=== PATIENT | female | born 1940 | race Caucasian/White ===

== ENCOUNTER 2017-09-17 23:30 | Inpatient (IN) | payer MEDICARE, OTHER ==
[2017-09-18 02:04] LABS: CKMB 1.9 ng/mL (0-6.6); Troponin I Less than 0.010 ng/mL (< 0.028)
[2017-09-18] MEDS ORDERED: Acetaminophen 650 MG Suppository PR PRN (02:06)
[2017-09-18] MEDS ORDERED: Bisacodyl 5 MG TAB PO PRN (02:06)
[2017-09-18 02:50] VITALS: BMI 27.3
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
[2017-09-18 05:10] LABS: Band 1 % (5-11); Lymphocytes 8 % (21-51); MDiff Complete? YES; Mean Corpuscular HGB CONC 33.3 g/dL (32.0-36.0); Mean Corpuscular Hemoglobin 31.8 pg (27.0-31.0); Mean Corpuscular Volume 95.5 fl (81.0-99.0); Mean Platelet Volume 6.5 fL (7.4-10.4); Neutrophil 91 % (42-75); PLT Morphology Comment Appears Increased; Platelet Count 446 thou/uL (130-400); RBC Distribution Width 12.3 % (11.5-14.5); Red Blood Cell (RBC) Count 3.78 mill/uL (4.20-5.40); White Blood Cell (WBC) Count 17.2 thou/uL (4.8-10.8)
[2017-09-18 08:05] LABS: Troponin I Less than 0.010 ng/mL (< 0.028)
[2017-09-18] MEDS: Enoxaparin Sodium 40 MG/0.4 ML SYRINGE SC SCH (09:06)
[2017-09-18] MEDS: Acetaminophen 325 MG TAB PO PRN (09:08)
[2017-09-18] MEDS ORDERED: Loperamide HCl 2 MG CAP PO SCH (10:00)
--- NOTE | 2017-09-18 18:24 | PDOC.PN ---
- Subjective Encounter Start Date: 09/18/17 Encounter Start Time: 18:20 Subjective: f/u COPD exacerbation on Solumedrol, Zithromax and Duonebs. -: Feels better overall today. Still some wheezing and dry cough. -: Influenza reportedly neg x 2. - Objective MAR Reviewed: Yes Vital Signs & Weight: Vital Signs (12 hours) Temp Pulse Resp BP Pulse Ox 09/18/17 14:11 101 H 20 92 L 09/18/17 10:45 98.0 F 100 22 H 127/57 L 95 09/18/17 07:40 98.0 F 98 20 123/74 96 09/18/17 07:27 96 09/18/17 07:26 98 20 96 09/18/17 07:24 98.0 F 99 20 96 Weight Weight 126 lb 6 oz I&O: 09/17/17 09/18/17 09/19/17 06:59 06:59 06:59 Intake Total 1540 Balance 1540 Result Diagrams: 09/18/17 04:23 Radiology Reviewed by me: Yes (PCXR - chronic changes bilat) Phys Exam - Physical Examination Constitutional: NAD HEENT: PERRLA, oral pharynx no lesions Neck: no JVD, supple exp wheezing bilat Cardiovascular: RRR Gastrointestinal: soft, non-tender, no distention, positive bowel sounds Musculoskeletal: no edema, pulses present Neurological: normal sensation, moves all 4 limbs Psychiatric: A&O x 3 Skin: normal turgor, cap refill <2 seconds Dx/Plan (1) COPD exacerbation Code(s): J44.1 - CHRONIC OBSTRUCTIVE PULMONARY DISEASE W (ACUTE) EXACERBATION Status: Acute Comment: continue Solumedrol, Duonebs and Zithromax (2) CKD (chronic kidney disease), stage III Code(s): N18.3 - CHRONIC KIDNEY DISEASE, STAGE 3 (MODERATE) Status: Chronic Comment: Avoid nephrotoxic meds adn contrast media (3) Acute respiratory failure with hypoxia Code(s): J96.01 - ACUTE RESPIRATORY FAILURE WITH HYPOXIA Status: Acute Comment: Continue O2 supplementation and check for home O2 need - Plan continue antibiotics, PT/OT, social worker psychiatric, respiratory therapy, out of bed/ ambulate, DVT proph w/SCDs Stable overall -: Continue Duonebs, Solumedrol -: Continue Zithromax -: Add Spiriva Handihaler 18mcg daily -: AM lab: CBC * ? home in 24-48h
[2017-09-18] MEDS: Mometasone/Formoterol 120 PUFF INHALER INH SCH (18:25)
[2017-09-18] MEDS ORDERED: Spiriva 18 MCG CAP (Box of 5 Caps) INH SCH (19:00)
[2017-09-18] MEDS: Benzonatate 100 MG CAP PO SCH (19:54)
[2017-09-18] MEDS: Azithromycin 500 MG in Sodium Chloride 0.9% 250 ML 250 ML IVPB SCH (19:54)
[2017-09-18] MEDS: Amitriptyline HCl 100 MG TAB PO SCH (22:02)
[2017-09-18] MEDS: Temazepam 15 MG CAP PO SCH (22:03)
[2017-09-19] MEDS: Mometasone/Formoterol 120 PUFF INHALER INH SCH ×2 (07:25→20:43)
[2017-09-19] MEDS ORDERED: Prevnar 13-Val Conj/PF 0.5 ML SYRINGE IM ONE (09:00)
[2017-09-19] MEDS: Benzonatate 100 MG CAP PO SCH ×3 (09:23→20:44)
[2017-09-19] MEDS: Enoxaparin Sodium 40 MG/0.4 ML SYRINGE SC SCH (09:23)
[2017-09-19] MEDS ORDERED: Sodium Chloride 0.9% 1,000 ML IV SCH (13:30)
--- NOTE | 2017-09-19 15:56 | PDOC.PN ---
- Subjective Encounter Start Date: 09/19/17 Encounter Start Time: 15:40 Subjective: f/u for COPD exacerbation with nursing stating elevated HR and pt -: c/o palpitations and fatigue with some sweating. EKG showed sinus -: tach and trop neg x 3. - Objective MAR Reviewed: Yes Vital Signs & Weight: Vital Signs (12 hours) Temp Pulse Resp BP Pulse Ox 09/19/17 15:31 98.8 F 128 H 22 H 121/68 93 L 09/19/17 12:05 122 H 20 95 09/19/17 11:07 98.3 F 122 H 22 H 114/67 95 09/19/17 10:30 98.2 F 128 H 22 H 111/57 L 93 L 09/19/17 07:36 97.6 F 107 H 20 127/69 97 09/19/17 07:25 111 H 18 95 09/19/17 07:09 98.4 F 118 H 22 H 09/19/17 06:02 118 H 09/19/17 05:56 98.4 F 122 H 20 122/68 94 L Weight Weight 126 lb 6 oz I&O: 09/18/17 09/19/17 09/20/17 06:59 06:59 06:59 Intake Total 1540 Balance 1540 Result Diagrams: 09/18/17 04:23 Additional Labs: Microbiology 09/18/17 10:36 Stool Campylobacter Antigen Assay - Final 09/18/17 10:36 Stool Shiga Toxin Test - Final 09/18/17 10:36 Stool C. difficile GDH Antigen & Toxins - Final Laboratory Tests 09/18/17 09/18/17 09/18/17 01:29 04:23 07:08 Troponin I Less than 0.010 0.020 Less than 0.010 EKG Reviewed by me: Yes (Tele - sinus tachycardia in 120's) Phys Exam - Physical Examination Constitutional: NAD HEENT: PERRLA, oral pharynx no lesions Neck: no JVD, supple diminished bilat with exp wheezing tachycardic Gastrointestinal: soft, non-tender, no distention, positive bowel sounds Musculoskeletal: no edema, pulses present Neurological: normal sensation, moves all 4 limbs Psychiatric: A&O x 3 Skin: normal turgor, cap refill <2 seconds Dx/Plan (1) COPD exacerbation Code(s): J44.1 - CHRONIC OBSTRUCTIVE PULMONARY DISEASE W (ACUTE) EXACERBATION Status: Acute Comment: continue Solumedrol, add Xopenex and Atropvent, Zithromax (2) CKD (chronic kidney disease), stage III Code(s): N18.3 - CHRONIC KIDNEY DISEASE, STAGE 3 (MODERATE) Status: Chronic Comment: Avoid nephrotoxic meds adn contrast media (3) Acute respiratory failure with hypoxia Code(s): J96.01 - ACUTE RESPIRATORY FAILURE WITH HYPOXIA Status: Acute Comment: Continue O2 supplementation and check for home O2 need (4) Sinus tachycardia Code(s): R00.0 - TACHYCARDIA, UNSPECIFIED Status: Acute Comment: EKG showing sinus tachycardia, transfer to tele for monitoring, check Mg++, TSH and BMP - Plan continue antibiotics, respiratory therapy, DVT proph w/SCDs D/C Albuterol and change to Xopenex neb -: Continue Solumedrol, Zithromax and Dulera -: Continue O2 supplementation and wean as tolerated -: Transfer to Tele -: Lab: BMP, CBC, TSH, Mg++ * .
[2017-09-19 16:50] LABS: Acanthocytes SLIGHT = 1-5 cells (100X) (None Seen); Anion Gap 11 mmol/L (10-20); BUN (Urea Nitrogen) 17 mg/dL (9.8-20.1); Band 1 % (5-11); Calc. Creatinine Clearance 48 mL/min (70-130); Calcium 8.1 mg/dL (7.8-10.44); Carbon Dioxide 21 mmol/L (23-31); Chloride 109 mmol/L (98-107); Estimated GFR-MDRD 60; Glucose 172 mg/dL (83-110); Hemoglobin 11.2 g/dL (12.0-16.0); Hypochromia SLIGHT = 6-15 cells (100X) (0-5/hpf); Lymphocytes 3 % (21-51); MDiff Complete? YES; Magnesium 2.1 mg/dL (1.6-2.6); Mean Corpuscular HGB CONC 32.9 g/dL (32.0-36.0); Mean Corpuscular Hemoglobin 31.5 pg (27.0-31.0); Mean Corpuscular Volume 95.8 fl (81.0-99.0); Mean Platelet Volume 6.4 fL (7.4-10.4); Monocytes 4 % (0-10); Neutrophil 92 % (42-75); PLT Morphology Comment Appears Increased; Platelet Count 469 thou/uL (130-400); RBC Distribution Width 12.4 % (11.5-14.5); Red Blood Cell (RBC) Count 3.56 mill/uL (4.20-5.40); Sodium 137 mmol/L (136-145); White Blood Cell (WBC) Count 28.4 thou/uL (4.8-10.8)
[2017-09-19] MEDS ORDERED: Sodium Chloride 0.9% 10 ML ONE (19:36)
[2017-09-19] MEDS: Levalbuterol HCl 0.63 MG/3 ML NEB NEB SCH (20:41)
[2017-09-19] MEDS: Ipratropium Bromide 2.5 ml Neb NEB SCH ×2 (20:41→22:51)
[2017-09-19] MEDS: Amitriptyline HCl 100 MG TAB PO SCH (20:43)
[2017-09-19] MEDS: Temazepam 15 MG CAP PO SCH (20:44)
[2017-09-19] MEDS: Azithromycin 500 MG in Sodium Chloride 0.9% 250 ML 250 ML IVPB SCH (20:44)
[2017-09-20] MEDS: Ipratropium Bromide 2.5 ml Neb NEB SCH ×6 (02:46→21:50)
[2017-09-20] MEDS: Levalbuterol HCl 0.63 MG/3 ML NEB NEB SCH ×4 (02:47→15:19)
[2017-09-20] MEDS: Mometasone/Formoterol 120 PUFF INHALER INH SCH ×2 (08:44→19:03)
[2017-09-20] MEDS: Benzonatate 100 MG CAP PO SCH ×3 (09:48→21:09)
[2017-09-20] MEDS: Enoxaparin Sodium 40 MG/0.4 ML SYRINGE SC SCH (09:48)
--- NOTE | 2017-09-20 15:57 | PDOC.PN ---
- Subjective Encounter Start Date: 09/20/17 Encounter Start Time: 15:45 Subjective: f/u for COPD exacerbation and sinus tachycardia. Feels better overall. -: Still notices palpitations and tele showing persistent sinus tach. - Objective MAR Reviewed: Yes Vital Signs & Weight: Vital Signs (12 hours) Temp Pulse Resp BP Pulse Ox 09/20/17 15:19 119 H 12 09/20/17 12:10 98.6 F 122 H 18 137/67 92 L 09/20/17 11:17 123 H 12 09/20/17 08:44 112 H 12 09/20/17 08:43 93 L 09/20/17 08:36 112 H 12 09/20/17 07:40 98.4 F 110 H 22 H 158/76 H 92 L 09/20/17 04:00 97.7 F 110 H 18 149/74 H 96 Weight Weight 134 lb 1.6 oz I&O: 09/19/17 09/20/17 09/21/17 06:59 06:59 06:59 Intake Total 1540 2450 Balance 1540 2450 Result Diagrams: 09/19/17 16:07 09/19/17 16:07 Additional Labs: Microbiology 09/18/17 10:36 Stool Campylobacter Antigen Assay - Final 09/18/17 10:36 Stool Shiga Toxin Test - Final 09/18/17 10:36 Stool C. difficile GDH Antigen & Toxins - Final 09/17/17 21:50 Nasal swab Influenza Types A,B Direct EIA - Final 09/17/17 16:00 Urine voided Urine Culture - Final 09/17/17 21:00 Venous blood - Right Arm Blood Culture - Preliminary NO GROWTH AT 48 HOURS 09/17/17 20:50 Venous blood - Right Arm Blood Culture - Preliminary NO GROWTH AT 48 HOURS Laboratory Tests 09/18/17 09/18/17 09/18/17 01:29 04:23 04:23 WBC 17.2 H Troponin I Less than 0.010 0.020 TSH 3rd Generation 09/18/17 09/19/17 07:08 16:06 WBC Troponin I Less than 0.010 TSH 3rd Generation 0.2014 L EKG Reviewed by me: Yes (Tele = sinus tachycardia) Phys Exam - Physical Examination Constitutional: NAD HEENT: PERRLA, oral pharynx no lesions Neck: no JVD, supple exp wheezing tachycardic Gastrointestinal: soft, non-tender, no distention, positive bowel sounds Musculoskeletal: no edema, pulses present Neurological: non-focal, normal sensation, moves all 4 limbs Psychiatric: A&O x 3 Skin: normal turgor, cap refill <2 seconds Dx/Plan (1) COPD exacerbation Code(s): J44.1 - CHRONIC OBSTRUCTIVE PULMONARY DISEASE W (ACUTE) EXACERBATION Status: Acute Comment: continue Solumedrol, add Xopenex and Atropvent, Zithromax (2) CKD (chronic kidney disease), stage III Code(s): N18.3 - CHRONIC KIDNEY DISEASE, STAGE 3 (MODERATE) Status: Chronic Comment: Avoid nephrotoxic meds adn contrast media (3) Acute respiratory failure with hypoxia Code(s): J96.01 - ACUTE RESPIRATORY FAILURE WITH HYPOXIA Status: Acute Comment: Continue O2 supplementation and check for home O2 need (4) Sinus tachycardia Code(s): R00.0 - TACHYCARDIA, UNSPECIFIED Status: Acute Comment: EKG showing sinus tachycardia, transfer to [facility] for monitoring, check Mg++, TSH and BMP, start trial Propranolol 10mg q6h (5) Hyperthyroidism Code(s): E05.90 - THYROTOXICOSIS, UNSP WITHOUT THYROTOXIC CRISIS OR STORM Status: Suspected Comment: Start Propranolol, check FT4 level - Plan continue antibiotics, PT/OT, social work supervisor, respiratory therapy, DVT proph w/ SCDs Stable overall -: Start Propranolol -: Continue pulmonary support Dulera, Duonemich, Xopenex -: OOB/ambulate -: Wean O2 as clinically indicated * AM lab: Free T4
[2017-09-20] MEDS: Propranolol 10 MG TAB PO SCH (17:22)
[2017-09-20] MEDS: Temazepam 15 MG CAP PO SCH (21:09)
[2017-09-20] MEDS: Azithromycin 500 MG in Sodium Chloride 0.9% 250 ML 250 ML IVPB SCH (21:09)
[2017-09-20] MEDS: Amitriptyline HCl 100 MG TAB PO SCH (21:09)
[2017-09-21] MEDS: Propranolol 10 MG TAB PO SCH ×4 (00:31→17:06)
[2017-09-21] MEDS: Ipratropium Bromide 2.5 ml Neb NEB SCH ×6 (01:34→21:55)
[2017-09-21] MEDS: Levalbuterol HCl 0.63 MG/3 ML NEB NEB SCH ×4 (01:35→19:55)
[2017-09-21] MEDS: Mometasone/Formoterol 120 PUFF INHALER INH SCH ×2 (08:02→19:54)
[2017-09-21] MEDS: Benzonatate 100 MG CAP PO SCH ×3 (08:11→21:38)
[2017-09-21] MEDS: Enoxaparin Sodium 40 MG/0.4 ML SYRINGE SC SCH (08:11)
--- NOTE | 2017-09-21 11:04 | PDOC.PN ---
- Subjective Encounter Start Date: 09/21/17 Encounter Start Time: 07:00 Pt seen for followup re: acute respiratory failure. Reports SOBOE. Cough+, no sputum. No fevers. - Objective MAR Reviewed: Yes Vital Signs & Weight: Vital Signs (12 hours) Temp Pulse Resp BP Pulse Ox 09/21/17 08:02 84 16 09/21/17 07:51 95 09/21/17 07:43 83 20 09/21/17 07:10 98.0 F 97 20 160/81 H 96 09/21/17 04:50 97 09/21/17 04:00 97.4 F L 81 19 160/76 H 97 09/21/17 03:49 94 L 09/21/17 01:34 108 H 16 96 09/21/17 00:30 107 H 20 147/99 H Weight Weight 134 lb 9.6 oz I&O: 09/20/17 09/21/17 09/22/17 06:59 06:59 06:59 Intake Total 2450 730 Output Total 1350 Balance 2450 -620 Result Diagrams: 09/19/17 16:07 09/19/17 16:07 EKG Reviewed by me: Yes (tele: NSR, S. tach) Phys Exam - Physical Examination Constitutional: NAD HEENT: moist MMs Neck: supple Respiratory: clear to auscultation bilateral Diminished air entry rebecca bases Cardiovascular: RRR Gastrointestinal: soft Musculoskeletal: pulses present Neurological: moves all 4 limbs Psychiatric: normal affect Dx/Plan (1) Acute respiratory failure with hypoxia Code(s): J96.01 - ACUTE RESPIRATORY FAILURE WITH HYPOXIA Status: Acute (2) COPD exacerbation Code(s): J44.1 - CHRONIC OBSTRUCTIVE PULMONARY DISEASE W (ACUTE) EXACERBATION Status: Acute (3) Sinus tachycardia Code(s): R00.0 - TACHYCARDIA, UNSPECIFIED Status: Acute (4) CKD (chronic kidney disease), stage III Code(s): N18.3 - CHRONIC KIDNEY DISEASE, STAGE 3 (MODERATE) Status: Chronic (5) Hyperthyroidism Code(s): E05.90 - THYROTOXICOSIS, UNSP WITHOUT THYROTOXIC CRISIS OR STORM Status: Ruled-out - Plan continue antibiotics, PT/OT, out of bed/ambulate * . Sinus tachycardia has improved, but persists. d-dimer was normal. However, in view of tachycardia and shortness of breath, will check CTA to r/o PE. Free T4 is normal, needs thyroid profile rechecked in 6-8 weeks. Review of Systems - Review of Systems Respiratory: Cough, SOB with Excertion. negative: Dry, Shortness of Breath, Hemoptysis, Pleuritic Pain, Sputum, Wheezing Cardiovascular: negative: chest pain, palpitations, orthopnea, paroxysmal nocturnal dyspnea, edema, light headedness - Medications/Allergies Allergies/Adverse Reactions: Allergies Allergy/AdvReac Type Severity Reaction Status Date / Time cefuroxime Allergy Verified 09/18/17 02:05 Cephalosporins Allergy Verified 09/18/17 02:05 levofloxacin Allergy Diarrhea Verified 09/18/17 02:43 Penicillins Allergy Hives Verified 09/18/17 02:43 Medications: Current Medications Acetaminophen (Tylenol) 650 mg PO Q4H PRN PRN Reason: Headache/Fever or Pain Last Admin: 09/18/17 09:08 Dose: 650 mg Acetaminophen (Tylenol) 650 mg RI Q4H PRN PRN Reason: Headache/Fever or Pain Amitriptyline HCl (Elavil) 50 mg PO HS [facility] Last Admin: 09/20/17 21:09 Dose: 50 mg Benzonatate (Tessalon) 100 mg PO TID [facility] Last Admin: 09/21/17 08:11 Dose: 100 mg Bisacodyl (Dulcolax) 10 mg PO DAILYPRN PRN PRN Reason: Constipation Enoxaparin Sodium (Lovenox) 40 mg SC 0900 [facility] Last Admin: 09/21/17 08:11 Dose: 40 mg Azithromycin 500 mg/ Sodium (Chloride) 250 mls @ 250 mls/hr IVPB Q24HR@2100 [facility] Last Admin: 09/20/17 21:09 Dose: 250 mls Ipratropium [place] (Atrovent) 2.5 ml NEB [id number] [facility] Last Admin: 09/21/17 07:43 Dose: 2.5 ml Levalbuterol HCl (Xopenex) 0.63 mg NEB [id number] [facility] Last Admin: 09/21/17 07:43 Dose: 0.63 mg Methylprednisolone Sodium Succinate (Solu-Medrol) 40 mg IVP Q8HR [facility] Last Admin: 09/21/17 05:37 Dose: 40 mg Mometasone Furoate/Formoterol Fumar (Dulera 200 Mcg/5 Mcg Inhaler) 2 puff INH BID-RT [facility] Last Admin: 09/21/17 08:02 Dose: 2 puff Propranolol HCl (Inderal) 10 mg PO Q6HR [facility] Last Admin: 09/21/17 05:37 Dose: 10 mg Temazepam (Restoril) 15 mg PO HS [facility] Last Admin: 09/20/17 21:09 Dose: 15 mg
[2017-09-21 12:23] LABS: Anion Gap 14 mmol/L (10-20); BUN (Urea Nitrogen) 29 mg/dL (9.8-20.1); Calc. Creatinine Clearance 49 mL/min (70-130); Calcium 8.3 mg/dL (7.8-10.44); Carbon Dioxide 23 mmol/L (23-31); Chloride 108 mmol/L (98-107); Estimated GFR-MDRD 57; Glucose 145 mg/dL (83-110); Potassium 4.1 mmol/L (3.5-5.1); Sodium 141 mmol/L (136-145)
[2017-09-21 12:26] LABS: Band 1 % (5-11); Hemoglobin 12.4 g/dL (12.0-16.0); Lymphocytes 8 % (21-51); MDiff Complete? YES; Mean Corpuscular HGB CONC 33.8 g/dL (32.0-36.0); Mean Corpuscular Volume 94.6 fl (81.0-99.0); Mean Platelet Volume 6.6 fL (7.4-10.4); Monocytes 3 % (0-10); Neutrophil 88 % (42-75); Platelet Count 512 thou/uL (130-400); RBC Distribution Width 12.4 % (11.5-14.5); Red Blood Cell (RBC) Count 3.89 mill/uL (4.20-5.40)
--- NOTE | 2017-09-21 13:53 | CT ---
CT ARTERIOGRAM CHEST WITH IV CONTRAST AND 3D MIP IMAGING: HISTORY: Cough. Chest pain. FINDINGS: There is good contrast opacification of the pulmonary arteries and thoracic aorta with normal branchi ng of the great vessels. There is calcification in the arterial structures. Lungs are hyperinflated with scattered areas of scarring and minimal alveolar opacity. No lobar consolidation is apparent. Minimal pericardial fluid is apparent. Within the partially visualized upper abdomen, cysts arise f rom the cortex of the left kidney. Gallbladder is surgically absent. IMPRESSION: 1. No CT evidence of pulmonary embolus. 2. Atherosclerosis. 3. Chronic obstructive pulmonary disease. POS: [facility]
[2017-09-21] MEDS: Acetaminophen 325 MG TAB PO PRN (14:50)
[2017-09-21] MEDS: Amitriptyline HCl 100 MG TAB PO SCH (21:37)
[2017-09-21] MEDS: Temazepam 15 MG CAP PO SCH (21:38)
[2017-09-21] MEDS: Azithromycin 500 MG in Sodium Chloride 0.9% 250 ML 250 ML IVPB SCH (21:38)
[2017-09-22] MEDS: Propranolol 10 MG TAB PO SCH ×4 (00:23→18:09)
[2017-09-22] MEDS: Levalbuterol HCl 0.63 MG/3 ML NEB NEB SCH ×4 (02:12→19:59)
[2017-09-22] MEDS: Ipratropium Bromide 2.5 ml Neb NEB SCH ×6 (02:14→22:15)
[2017-09-22 05:26] LABS: #Basophils 0.1 thou/uL (0.0-0.2); #Lymphocytes 2.6 thou/uL (1.20-3.40); #Monocytes 0.9 thou/uL (0.11-0.59); #Neutrophils 14.8 thou/uL (1.40-6.50); %Basophils 0.3 % (0.0-1.0); %Eosinophils 0.3 % (0.0-10.0); %Lymphocytes 14.1 % (21.0-51.0); %Neutrophils 80.3 % (42.0-75.0); Hemoglobin 11.3 g/dL (12.0-16.0); Mean Corpuscular HGB CONC 34.1 g/dL (32.0-36.0); Mean Corpuscular Hemoglobin 32.1 pg (27.0-31.0); Mean Corpuscular Volume 94.2 fl (81.0-99.0); Mean Platelet Volume 6.7 fL (7.4-10.4); Platelet Count 461 thou/uL (130-400); RBC Distribution Width 12.1 % (11.5-14.5); Red Blood Cell (RBC) Count 3.53 mill/uL (4.20-5.40); White Blood Cell (WBC) Count 18.4 thou/uL (4.8-10.8)
[2017-09-22 05:48] LABS: Anion Gap 14 mmol/L (10-20); BUN (Urea Nitrogen) 28 mg/dL (9.8-20.1); Calc. Creatinine Clearance 61 mL/min (70-130); Carbon Dioxide 22 mmol/L (23-31); Chloride 104 mmol/L (98-107); Estimated GFR-MDRD 75; Glucose 153 mg/dL (83-110); Potassium 3.9 mmol/L (3.5-5.1); Sodium 136 mmol/L (136-145)
[2017-09-22] MEDS: Mometasone/Formoterol 120 PUFF INHALER INH SCH ×2 (09:00→19:59)
[2017-09-22] MEDS: Enoxaparin Sodium 40 MG/0.4 ML SYRINGE SC SCH (09:10)
[2017-09-22] MEDS: Benzonatate 100 MG CAP PO SCH ×3 (09:10→21:03)
--- NOTE | 2017-09-22 13:06 | PDOC.PN ---
- Subjective Encounter Start Date: 09/22/17 Encounter Start Time: 07:20 Pt seen for followup re: acute respiratory failure. Reports feeling better. Shortness of breath is better. Still has cough. - Objective MAR Reviewed: Yes Vital Signs & Weight: Vital Signs (12 hours) Temp Pulse Resp BP Pulse Ox 09/22/17 12:28 98.0 F 86 18 132/63 99 09/22/17 09:00 84 16 09/22/17 08:37 97 09/22/17 08:33 84 16 09/22/17 07:25 98.0 F 74 18 161/77 H 98 09/22/17 04:50 96 09/22/17 04:00 98.2 F 72 18 139/67 96 Weight Weight 134 lb 4.8 oz I&O: 09/21/17 09/22/17 09/23/17 06:59 06:59 06:59 Intake Total 730 480 Output Total 1350 1100 Balance -620 -620 Result Diagrams: 09/22/17 04:23 09/22/17 04:23 EKG Reviewed by me: Yes (Tele: NSR) Phys Exam - Physical Examination Constitutional: NAD HEENT: moist MMs Neck: supple Respiratory: clear to auscultation bilateral Cardiovascular: RRR Gastrointestinal: soft Neurological: moves all 4 limbs Psychiatric: normal affect Skin: no rash Dx/Plan (1) Acute respiratory failure with hypoxia Code(s): J96.01 - ACUTE RESPIRATORY FAILURE WITH HYPOXIA Status: Acute (2) COPD exacerbation Code(s): J44.1 - CHRONIC OBSTRUCTIVE PULMONARY DISEASE W (ACUTE) EXACERBATION Status: Acute (3) Sinus tachycardia Code(s): R00.0 - TACHYCARDIA, UNSPECIFIED Status: Acute (4) CKD (chronic kidney disease), stage III Code(s): N18.3 - CHRONIC KIDNEY DISEASE, STAGE 3 (MODERATE) Status: Chronic (5) Hyperthyroidism Code(s): E05.90 - THYROTOXICOSIS, UNSP WITHOUT THYROTOXIC CRISIS OR STORM Status: Ruled-out - Plan continue antibiotics, out of bed/ambulate * . Heart rate has improved. Still needing oxygen, try to wean off of O2. Continue steroids, bronchodilators and antibiotics. likely home 24-48 h Review of Systems - Review of Systems Respiratory: Cough, Dry, SOB with Excertion. negative: Shortness of Breath, Hemoptysis, Pleuritic Pain, Sputum, Wheezing Cardiovascular: negative: chest pain, palpitations, orthopnea, paroxysmal nocturnal dyspnea, edema, light headedness - Medications/Allergies Allergies/Adverse Reactions: Allergies Allergy/AdvReac Type Severity Reaction Status Date / Time cefuroxime Allergy Verified 09/18/17 02:05 Cephalosporins Allergy Verified 09/18/17 02:05 levofloxacin Allergy Diarrhea Verified 09/18/17 02:43 Penicillins Allergy Hives Verified 09/18/17 02:43 Medications: Current Medications Acetaminophen (Tylenol) 650 mg PO Q4H PRN PRN Reason: Headache/Fever or Pain Last Admin: 09/21/17 14:50 Dose: 650 mg Acetaminophen (Tylenol) 650 mg [place] Q4H PRN PRN Reason: Headache/Fever or Pain Amitriptyline HCl (Elavil) 50 mg PO HS [facility] Last Admin: 09/21/17 21:37 Dose: 50 mg Benzonatate (Tessalon) 100 mg PO TID [facility] Last Admin: 09/22/17 09:10 Dose: 100 mg Bisacodyl (Dulcolax) 10 mg PO DAILYPRN PRN PRN Reason: Constipation Enoxaparin Sodium (Lovenox) 40 mg SC 0900 [facility] Last Admin: 09/22/17 09:10 Dose: 40 mg Azithromycin 500 mg/ Sodium (Chloride) 250 mls @ 250 mls/hr IVPB Q24HR@2100 [facility] Last Admin: 09/21/17 21:38 Dose: 250 mls Ipratropium [place] (Atrovent) 2.5 ml NEB [id number] [facility] Last Admin: 09/22/17 08:33 Dose: 2.5 ml Levalbuterol HCl (Xopenex) 0.63 mg NEB [id number] [facility] Last Admin: 09/22/17 08:33 Dose: 0.63 mg Methylprednisolone Sodium Succinate (Solu-Medrol) 40 mg IVP Q8HR [facility] Last Admin: 09/22/17 05:49 Dose: 40 mg Mometasone Furoate/Formoterol Fumar (Dulera 200 Mcg/5 Mcg Inhaler) 2 puff INH BID-RT [facility] Last Admin: 09/22/17 09:00 Dose: 2 puff Propranolol HCl (Inderal) 10 mg PO Q6HR [facility] Last Admin: 09/22/17 12:34 Dose: 10 mg Temazepam (Restoril) 15 mg PO HS [facility] Last Admin: 09/21/17 21:38 Dose: 15 mg
[2017-09-22] MEDS: Azithromycin 500 MG in Sodium Chloride 0.9% 250 ML 250 ML IVPB SCH (21:03)
[2017-09-22] MEDS: Temazepam 15 MG CAP PO SCH (21:03)
[2017-09-22] MEDS: Amitriptyline HCl 100 MG TAB PO SCH (21:03)
[2017-09-23] MEDS: Ipratropium Bromide 2.5 ml Neb NEB SCH ×4 (01:47→13:29)
[2017-09-23] MEDS: Levalbuterol HCl 0.63 MG/3 ML NEB NEB SCH ×3 (01:48→13:27)
[2017-09-23] MEDS: Propranolol 10 MG TAB PO SCH ×3 (02:41→12:57)
[2017-09-23 06:08] LABS: Anion Gap 9 mmol/L (10-20); BUN (Urea Nitrogen) 26 mg/dL (9.8-20.1); Calc. Creatinine Clearance 54 mL/min (70-130); Calcium 8.1 mg/dL (7.8-10.44); Carbon Dioxide 30 mmol/L (23-31); Chloride 103 mmol/L (98-107); Estimated GFR-MDRD 65; Glucose 89 mg/dL (83-110); Potassium 3.3 mmol/L (3.5-5.1); Sodium 139 mmol/L (136-145)
[2017-09-23] MEDS: Mometasone/Formoterol 120 PUFF INHALER INH SCH (07:19)
[2017-09-23] MEDS ORDERED: predniSONE 50 MG TAB PO SCH (08:00)
[2017-09-23] MEDS ORDERED: Potassium Chloride 20 MEQ TAB PO SCH (08:00)
[2017-09-23 08:23] LABS: Band 1 % (5-11); Hemoglobin 12.7 g/dL (12.0-16.0); Lymphocytes 21 % (21-51); MDiff Complete? YES; Mean Corpuscular HGB CONC 33.3 g/dL (32.0-36.0); Mean Corpuscular Hemoglobin 31.1 pg (27.0-31.0); Mean Corpuscular Volume 93.4 fl (81.0-99.0); Mean Platelet Volume 6.3 fL (7.4-10.4); Monocytes 11 % (0-10); Myelocyte 2 % (0-0); Neutrophil 65 % (42-75); Platelet Count 517 thou/uL (130-400); RBC Distribution Width 12.1 % (11.5-14.5); Red Blood Cell (RBC) Count 4.09 mill/uL (4.20-5.40); White Blood Cell (WBC) Count 24.2 thou/uL (4.8-10.8)
[2017-09-23] MEDS: Benzonatate 100 MG CAP PO SCH ×2 (09:20→16:59)
[2017-09-23] MEDS: Enoxaparin Sodium 40 MG/0.4 ML SYRINGE SC SCH (09:20)
--- NOTE | 2017-09-23 11:39 | DIS ---
DATE OF ADMISSION: 09/18/2017 DATE OF DISCHARGE: 09/23/2017 PRIMARY CARE PHYSICIAN: Rona Perales M.D. DISCHARGE DIAGNOSES: 1. Acute hypoxic respiratory failure. 2. Chronic obstructive pulmonary disease exacerbation. 3. Low TSH, but normal free T4. CONDITION OF PATIENT ON THE DAY OF DISCHARGE: Stable. I assessed Ms. Long on the day of discharg e. She denies any chest pain or shortness of breath. PHYSICAL EXAMINATION: VITAL SIGNS: Stable. She is saturating well on room air. CARDIOVASCULAR: S1 and S2 are heard, regular. LUNGS: Clear to auscultation bilaterally. DISCHARGE MEDICATIONS: Z-ALVARADO, amitriptyline 50 mg at bedtime, Tessalon 100 mg 3 times a day, Symbico rt 1 puff 2 times a day, Medrol Dosepak, propranolol 10 mg every 6 hours, temazepam 15 mg at bedtime, and DuoNeb q.i.d. p.r.n. HOSPITAL COURSE: Ms. Long is a pleasant 77-year-old lady who was admitted to [facility] on 09/18/2017 for acute hypoxic respiratory failure secondary to chronic obstructive pu lmonary disease exacerbation. She improved with oxygen, steroids, bronchodilators and antibiotics. She was found to have low TSH, but her free T4 was normal. She is advised to have her thyroid profil e checked in 6-8 weeks. She also had CT angiogram of the chest, which ruled out pulmonary embolism. She is being discharged home in a stable condition. She is advised to follow up with her primary ca re physician in 3-5 days. On the day of discharge, she has sodium 139, potassium 3.3, which is being replaced, blood urea nitro gen 26, creatinine 0.85, white count 24,200, hemoglobin 12.7, and platelet count 517,000. Many thanks for allowing me to participate in your patient's care. Please feel free to contact me wi th any questions or concerns. DISCHARGE DESTINATION: Home. TOTAL AMOUNT OF TIME SPENT COORDINATING THIS DISCHARGE: 33 minutes.
[2017-09-23] MEDS: Acetaminophen 325 MG TAB PO PRN (16:00)
[2017-09-23 16:07] VITALS: BP 130/60; TEMP 97.2
--- NOTE | 2017-10-01 17:13 | PQF ---
MARY SPRING DAVID [id number] CLINICAL DOCUMENTATION CLARIFICATION FORM: POST DISCHARGE Addendum to original discharge summary date: ____ Late entry note date: __ MARY SPRING [id number] TARIQ KAYE PLEASE DOCUMENT YOUR RESPONSE BELOW PLEASE FAX RESPONSE BACK TO [phone] YOUR INPUT IS NEEDED TO CORRECTLY CODE A DIAGNOSIS FOR YOUR PATIENT. DATE: 10/01/2017 ATTN: TARIQ KAYE MD Please exercise your independent, professional judgment in responding to the clarification form. Clinical indicators are provided on the bottom of this form for your review Please check appropriate box(s) to clarify if the following diagnosis has been ruled in our ruled out: SEPSIS [ ] Ruled in diagnosis [ ] Continue to treat [ ] Resolved [ X ] Ruled out diagnosis [ ] Cannot rule out diagnosis [ ] Other diagnosis [ ] Unable to determine In addition, please specify: Present on Admission (POA): [ ] Yes [ ] No [ ] Unable to determine For continuity of documentation, please document condition throughout progress notes and discharge summary. Thank You. CLINICAL INDICATORS - SIGNS / SYMPTOMS / LABS DISCHARGE SUMMARY DISCHARGE DIAGNOSES: 1. Acute hypoxic respiratory failure, 2. Chronic obstructive pulmonary disease exacerbation H&P VITAL SIGNS: Blood pressure is 134/68, pulse is 90, She is breathing at rate of 20 and saturating 96% on room air. She is currently afebrile. At the emergency room at [place], she had a blood pressure of 139/97, pulse 134, respiratory rate of 24, and temperature of 102 degrees Fahrenheit. LABORATORY DATA: She has leukocytosis with 21,800 white cells, of which 72.6 % are neutrophils. She appears to have had chronic thrombocytothemia, with a platelet count of 498,000 on 2015.She has normal electrolytes, normal blood urea nitrogen, mildly elevated creatinine of 1.14, last known creatinine 1.07 on 05/24/2017 as well as on 09/17/2017. ASSESSMENT: Sepsis: her presentation meets the criteria for sepsis, suspected source of infection in the respiratory tract likely secondary to bronchitis and chronic obstructive pulmonary disease exacerbation. She will be admitted to the hospital and treated with antibiotics. ER VITAL SIGNS: Blood pressure is 122/63; pulse 101, 90; Resp 20; Temp 99.8, 99.0; O2 sat 92, 96 on Room Air DIAGNOSIS: FINAL: PRIMARY: COPD exacerbation RISK FACTORS Acute hypoxic respiratory failure Advancing Age TREATMENTS Oxygen, IV steroids, and IV antibiotics (This form is maintained as a part of the permanent medical record) 2014 [employer]. All Rights Reserved Dipak [email or web address] [phone] MTDD
--- NOTE | 2017-11-23 13:57 | EKG ---
Test Reason : Blood Pressure : / mmHG Vent. Rate : 124 BPM Atrial Rate : 124 BPM P-R Int : 000 ms QRS Dur : 060 ms QT Int : 284 ms P-R-T Axes : 063 027 085 degrees QTc Int : 408 ms Sinus tachycardia Nonspecific T wave abnormality Abnormal ECG When compared with ECG of 23-JUL-2011 09:44, Nonspecific T wave abnormality now evident in Lateral leads Confirmed by DANTE SHELTON, NIKKI ([id number]) on 11/23/2017 1:56:43 PM Referred By: SAIMA Confirmed By:NIKKI HOWELL MD
== END 2017-09-23 18:15 | disposition home or self-care (01) | DRG 189 ==
LOC: ERS 23:30 → T4-A 09-18 02:35 → 2NO 09-19 17:26
PROVIDERS: ADMIT Internal Medicine; ATTEND Internal Medicine
DX: J96.01 Acute respiratory failure with hypoxia (principal); J44.1 Chronic obstructive pulmonary disease with (acute) exacerbation; N18.3 Chronic kidney disease, stage 3 (moderate); R00.0 Tachycardia, unspecified; I25.2 Old myocardial infarction; I12.9 Hypertensive chronic kidney disease with stage 1 through stage 4 chronic kidney disease, or unspecified chronic kidney disease; Z87.891 Personal history of nicotine dependence; Z66 Do not resuscitate; N28.9 Disorder of kidney and ureter, unspecified; E78.5 Hyperlipidemia, unspecified; R94.6 Abnormal results of thyroid function studies
CPT/HCPCS: 36415; 71275; 80048; 82553; 83735; 84439; 84443; 84484; 85007; 85025; 85027; 85379; 87045; 87046; 87324; 87449; 87899; 90471; 90670; 93005; 93010; 94640; 99285; A4216; G0009; J0456; J1650; J2920; J7050; J7614; J7620; J7644

== ENCOUNTER 2017-11-19 14:06 | Outpatient (CLI) | payer MEDICARE, OTHER ==
--- NOTE | 2017-11-19 15:47 | RAD ---
CHEST PA AND LATERAL 11/19/17 HISTORY: 77-year-old female with history of dyspnea. COMPARISON: 01/04/16. FINDINGS: Rotation to the left on the PA radiograph. Stable left costophrenic angle blunting. Heterogeneous bon y demineralization. No confluent pneumonia, overt edema, or pleural effusion. IMPRESSION: Stable minimal chronic changes left base. No acute intrathoracic disease. POS: [facility]
== END 2017-11-19 14:07 | disposition home or self-care (01) ==
LOC: RAD 14:06
PROVIDERS: ATTEND Internal Medicine Pulmonary Disease
DX: R06.00 Dyspnea, unspecified (principal); R91.8 Other nonspecific abnormal finding of lung field
CPT/HCPCS: 71046

== ENCOUNTER 2018-02-13 16:05 | Inpatient (IN) | payer MEDICARE, OTHER ==
--- NOTE | 2018-02-13 18:45 | CT ---
CHEST CT WITHOUT CONTRAST: 02/13/18 COMPARISON: CT angiogram chest 09/21/17. HISTORY: Respiratory infection, elevated white blood cell count, cough, fever. TECHNIQUE: Serial axial CT imaging obtained at 5 mm intervals from vertex through skull base without contrast. C oronal reformatted imaging obtained. FINDINGS: The lack of contrast limits assessment of the imaged viscera, the vascular structures and for lymphad enopathy. Limited assessment for adenopathy demonstrates no enlarged lymph nodes within the chest. Imaged upper abdomen demonstrates postsurgical clips in the left upper quadrant and the elliot hepatis . There is a exophytic probable cyst emanating from the lateral aspect of the left kidney, unchanged bu t only partially imaged and thus incompletely evaluated. There is trace pericardial fluid. No significant pleural or mediastinal fluid. There is scattered atherosclerotic calcification of the aortic arch and coronary arteries. There is n o pneumothorax seen on either side. There are increased linear interstitial densities noted bilateral ly with an upper lobe predominance. There is a central lobular emphysematous change within both upper lobes. No acute findings are noted within the right lung. There is increased linear density in the i nferior/medial right middle lobe, evidence of scar and/or volume loss. There is new peripheral reticulonodular density within the posterolateral aspect of the left upper lo be with lateral pleural thickening abutting the interlobar fissure, not present on the prior exam. Th ere is also new nodular pleural density with adjacent pulmonary parenchymal opacity within the inferi or lateral aspect of the left lower lobe abutting the pleural surface on image 40. Review of the osseous structures demonstrates no worrisome lytic or blastic bone lesion. IMPRESSION: Course reticulonodular focal areas of consolidative change noted in the inferolateral aspect of the l eft upper lobe as well as the inferolateral aspect of the left lower lobe, not present on the 02/28/18 examination. Findings may be related to multifocal infectious pneumonitis. Recommend followup chest CT in 4-6 weeks following treatment to document resolution. Code T POS: [facility]
[2018-02-13 19:50] LABS: Troponin I 0.023 ng/mL (< 0.028)
[2018-02-13] MEDS ORDERED: Bisacodyl 5 MG TAB PO PRN (19:56)
[2018-02-13] MEDS ORDERED: Senokot 8.6 MG TAB PO PRN (19:56)
[2018-02-13] MEDS ORDERED: Ondansetron HCl/PF 4 MG/2 ML Vial IVP PRN (19:56)
[2018-02-13] MEDS ORDERED: Acetaminophen 325 MG TAB PO PRN (19:56)
[2018-02-13] MEDS ORDERED: Non-Formulary Item 1 EACH (Ipratropium-Albuterol [Combivent] 2 PUFF) INH SCH (21:00)
[2018-02-13] MEDS: Sodium Chloride 0.9% 1,000 ML IV SCH (21:24)
[2018-02-13] MEDS: Heparin 5,000 UNITS/ML VIAL SC SCH (21:37)
[2018-02-13] MEDS: Mometasone/Formoterol 120 PUFF INHALER INH SCH (21:40)
[2018-02-13 22:25] LABS: Troponin I Less than 0.010 ng/mL (< 0.028)
--- NOTE | 2018-02-13 22:47 | NM ---
VENTILATION PERFUSION LUNG SCAN 02/13/18 COMPARISON: None. HISTORY: Fever and productive cough, concern for pneumonia, pleuritic changes pain, elevated D-dimer. TECHNIQUE: Ventilation imaging is obtained following the inhalation of 6.5 millicuries Xenon 133 gas by face mas k. Perfusion imaging is obtained following the intravenous administration of 6 millicuries of technet ium 99m labeled MAA. FINDINGS: Normal wash-in and equilibrium phase ventilation imaging is seen. There is mild air trapping. The perfusion imaging demonstrates mild patchy decreased activity within the left base with no periph eral or focal area of defect to suggest a mismatched perfusion abnormality. IMPRESSION: Low probability for pulmonary embolism. POS: [facility]
--- NOTE | 2018-02-13 23:35 | PDOC.EVN ---
Event Note - Event Note Event Note: fever, leukocytosis, L sided pleuritic chest pain CT demonstrates LLL pna hx of recurrent pna, COPD, and DVT & PE in the past per pt empiric abx - limited by allergies, will monitor for diarrhea while on levaquin nebs currently with reasonable O2 on RA apprec pulm c/s - outpatient pulm is Dr. Khan check V/Q when possible hemodynamically stable
[2018-02-13] MEDS ORDERED: Temazepam 15 MG CAP PO SCH (23:45)
[2018-02-14 00:51] LABS: Lactic Acid 2.8 mmol/L (0.5-2.2)
[2018-02-14 01:01] LABS: Troponin I Less than 0.010 ng/mL (< 0.028)
[2018-02-14 03:52] VITALS: BMI 26.8
[2018-02-14 05:44] LABS: ALT (SGPT) 11 U/L (8-55); AST (SGOT) 8 U/L (5-34); Albumin 3.2 g/dL (3.4-4.8); Alkaline Phosphatase 107 U/L (40-150); Anion Gap 12 mmol/L (10-20); BUN (Urea Nitrogen) 30 mg/dL (9.8-20.1); Bilirubin, Total 0.2 mg/dL (0.2-1.2); Calc. Creatinine Clearance 48 mL/min (70-130); Calcium 8.3 mg/dL (7.8-10.44); Carbon Dioxide 19 mmol/L (23-31); Chloride 109 mmol/L (98-107); Estimated GFR-MDRD 59; Globulin 2.7 g/dL (2.4-3.5); Glucose 260 mg/dL (83-110); Potassium 4.3 mmol/L (3.5-5.1); Protein, Total 5.9 g/dL (6.0-8.3); Sodium 136 mmol/L (136-145)
[2018-02-14 06:30] LABS: Band 2 % (5-11); Hemoglobin 10.4 g/dL (12.0-16.0); Hypochromia SLIGHT = 6-15 cells (100X) (0-5/hpf); Lymphocytes 8 % (21-51); MDiff Complete? YES; Mean Corpuscular HGB CONC 32.9 g/dL (32.0-36.0); Mean Corpuscular Hemoglobin 31.3 pg (27.0-31.0); Mean Corpuscular Volume 95.1 fL (78.0-98.0); Mean Platelet Volume 6.6 fL (7.4-10.4); Monocytes 5 % (0-10); Neutrophil 85 % (42-75); PLT Morphology Comment Appears Increased; Platelet Count 464 thou/uL (130-400); RBC Distribution Width 12.9 % (11.5-14.5); Red Blood Cell (RBC) Count 3.32 mill/uL (4.20-5.40); White Blood Cell (WBC) Count 17.9 thou/uL (4.8-10.8)
[2018-02-14] MEDS ORDERED: Mometasone/Formoterol 120 PUFF INHALER INH SCH (06:30)
[2018-02-14] MEDS: Mometasone/Formoterol 120 PUFF INHALER INH SCH ×2 (07:30→19:20)
[2018-02-14] MEDS: Sodium Chloride 0.9% 1,000 ML IV SCH ×2 (08:26→17:41)
[2018-02-14] MEDS: Heparin 5,000 UNITS/ML VIAL SC SCH ×4 (09:41→20:45)
[2018-02-14] MEDS: COMBIVENT RESPIMAT INH SCH (09:48)
--- NOTE | 2018-02-14 12:35 | CON ---
DATE OF CONSULTATION: 02/14/2018 This is a total 70 minutes time spent with the patient, of that time, greater than 50% spent with the patient and/or on the patient's unit in the hospital. HISTORY OF PRESENT ILLNESS: This is a 77-year-old female who is a patient of Dr. Cross. She presen joanie to Dr. Perales in [place] on Saturday with increasing shortness of breath and right-sided pleuritic chest pain. She was prescribed some prednisone and some Zithromax. Two days later she cam e back, still felt poorly and was subsequently referred to the hospital for admission. She was given some antibiotics and breathing treatments. She says she feels better today. She had a CT of the est performed to evaluate for pneumonia. It showed a left upper lobe infiltrate that had not been pr esent on exam done several weeks ago. She has been coughing, but has not produced much in the way of sputum. PAST MEDICAL HISTORY: 1. Chronic obstructive pulmonary disease. 2. Osteoporosis. 3. Anxiety. 4. Previous DVT in the right leg. 5. Previous pulmonary embolism. 6. Transient ischemic attack. 7. Stroke. 8. Seizure. 9. Post-herpetic neuralgia. 10. Peripheral vascular disease. PAST SURGICAL HISTORY: 1. She has had stenting to both iliacs 2. Cholecystectomy. 3. Open hernia repair. 4. Foot surgery. 5. Some type of surgery for GERD. 6. Hysterectomy. 7. Splenectomy. FAMILY MEDICAL HISTORY: Father at 100 years old, had COPD. Mother had Parkinson's and Alzheime r's. SOCIAL HISTORY: The patient smoked 4 packs per day for about 50 years. She quit 3 years ago. Does not consume alcohol, does not use illicit drugs. ALLERGIES: PENICILLIN, ACETAMINOPHEN, LEVAQUIN, LORAZEPAM, PROPOXYPHENE. REVIEW OF SYSTEMS: Twelve point review of systems otherwise negative except for some foot edema on t he left. PHYSICAL EXAMINATION: VITAL SIGNS: Temperature 98.3, pulse 113, respirations 16, O2 sat 96%, blood pressure 139/77. GENERAL: She is awake, alert, conversant and in no distress. HEENT: Pupils react. Sclerae icteric. Oropharynx clear. NECK: No adenopathy, no JVD. LUNGS: She has crackles in the left upper lobe, best heard posteriorly. Her right side is clear. CARDIAC: S1, S2 regular, without murmur. ABDOMEN: Soft, nontender, without hepatosplenomegaly. EXTREMITIES: No clubbing, cyanosis, or edema. LABORATORY AND X-RAY FINDINGS: White blood count 17.9, hematocrit 31.6, platelet count 464 with 85% neutrophils, 2% bands. Sodium 136, potassium 4.3, chloride 109, CO2 19, BUN 30, creatinine 0.9, gluc ose 260. Albumin 3.2. CT was reviewed personally by myself demonstrates the left upper lobe process. ASSESSMENT: 1. Pneumonia - community-acquired. 2. History of severe chronic obstructive pulmonary disease and previous tobacco abuse. PLAN: 1. The patient was put on Levaquin for antibiotic coverage. However, there is an allergy listed in the chart, so this should probably be changed to an alternative agent. 2. Nebulization treatments every 4 hours. 3. IV steroids. 4. I will follow with you.
[2018-02-14] MEDS ORDERED: Dextrose 5% in Water 1,000 ML IV PRN (14:43)
[2018-02-14] MEDS ORDERED: Dextrose 50% Abboject 50 ML SYRINGE SLOW IVP PRN (14:43)
--- NOTE | 2018-02-14 14:48 | PDOC.PN ---
- Subjective Encounter Start Date: 02/14/18 Encounter Start Time: 14:44 Subjective: nsg notes rev, vasile ovn, pt laying in hospital bed, son and granddaughters -: at bedside. overall feels better. recounts having a panic attack in the [place] -: vator overnight - Objective Resuscitation Status: Resuscitation Status FULL:Full Resuscitation Vital Signs & Weight: Vital Signs (12 hours) Temp Pulse Resp BP Pulse Ox 02/14/18 14:09 79 16 02/14/18 11:28 98.3 F 113 H 16 139/77 96 02/14/18 07:53 97.9 F 99 16 96 02/14/18 07:37 97.9 F 99 16 146/74 H 96 02/14/18 07:31 94 L 02/14/18 07:30 88 12 02/14/18 07:27 88 12 02/14/18 04:00 97.5 F L 103 H 18 138/67 96 Weight Weight 128 lb 7 oz I&O: 02/13/18 02/14/18 02/15/18 06:59 06:59 06:59 Intake Total 922 Balance 922 Result Diagrams: 02/14/18 05:03 02/14/18 05:03 Phys Exam - Physical Examination Constitutional: NAD lying in hopsital bed HEENT: PERRLA, moist MMs, sclera anicteric Respiratory: no wheezing, no rales, no rhonchi, clear to auscultation bilateral diminished throughout Cardiovascular: RRR, no significant murmur, no rub Gastrointestinal: soft, non-tender, positive bowel sounds Musculoskeletal: no edema, pulses present Neurological: moves all 4 limbs Psychiatric: normal affect Dx/Plan - Plan cont current plan of care, continue antibiotics * LLL PNA * apprec pulm c/s * abx have been changed to doxycycline and azithromycin hx COPD concern for exacerbation * pt has been placed on steroids * continue nebs * maintaining O2 sat on RA * will start SSI prn for hyperglycemia from steroids leukocytosis * improved * appears has chronic leukocytosis * will check peripheral smear * anticipate degree of persistent leukocytosis with steroid initiation anxiety * appears to have sustained a panic attack last night, resolved * continue to monitor question of metabolic encephalopathy * pt states after her panic attack she had some difficulty with recalling the correct word - this is currently improved * continue to closely monitor patient's neurological status * low threshold to image brain if recurrence of symptoms activity: as willard dvt ppx d/w pts bedside nsg and family at bedside Review of Systems - Medications/Allergies Allergies/Adverse Reactions: Allergies Allergy/AdvReac Type Severity Reaction Status Date / Time iodine Allergy Severe Anaphylaxis Verified 02/14/18 08:20 acetaminophen Allergy Verified 02/14/18 03:56 [From Darvocet-N] cefuroxime Allergy Diarrhea Verified 09/30/17 09:35 Cephalosporins Allergy Verified 09/30/17 09:35 levofloxacin Allergy Diarrhea Verified 09/30/17 09:35 lorazepam Allergy Verified 09/30/17 09:35 Penicillins Allergy Hives Verified 09/30/17 09:35 propoxyphene Allergy Verified 09/30/17 09:35 [From Darvocet-N] Medications: Current Medications Acetaminophen (Tylenol) 650 mg PO Q4H PRN PRN Reason: Headache/Fever or Pain Last Admin: 02/14/18 00:35 Dose: 650 mg Albuterol/Ipratropium (Duoneb) 3 ml NEB [id number] [facility] Last Admin: 02/14/18 14:09 Dose: 3 ml Bisacodyl (Dulcolax) 10 mg PO DAILYPRN PRN PRN Reason: Constipation Dextrose/Water (Dextrose 50%) 25 gm SLOW IVP PRN PRN PRN Reason: Hypoglycemia Glucagon (Glucagon) 1 mg IM PRN PRN PRN Reason: Hypoglycemia Heparin Sodium (Porcine) (Heparin) 5,000 units SC TID [facility] Last Admin: 02/14/18 09:41 Dose: 5,000 units Sodium Chloride (Normal Saline 0.9%) 1,000 mls @ 100 mls/hr IV .Q10H [facility] Last Admin: 02/14/18 08:26 Dose: Not Given Doxycycline Hyclate 100 mg/ (Sodium Chloride) 100 mls @ 100 mls/hr IVPB 0100, 1300 [facility] Dextrose/Water (D5w) 1,000 mls @ 0 mls/hr IV .Q0M PRN; As Directed PRN Reason: Hypoglycemia Insulin Human Lispro (Humalog) 0 units SC .MILD SLIDING SCALE PRN PRN Reason: Mild Correctional Scale Methylprednisolone Sodium Succinate (Solu-Medrol) 20 mg IVP Q6HR [facility] Mometasone Furoate/Formoterol Fumar (Dulera 100 Mcg/5 Mcg Inhaler) 2 puff INH BID [facility] Last Admin: 02/14/18 07:30 Dose: 2 puff Ondansetron HCl (Zofran) 4 mg IVP Q6H PRN PRN Reason: Nausea/Vomiting Combivent Respimat ( Albuterol/Ipratropium) 0 each INH DAILY [facility] Last Admin: 02/14/18 09:48 Dose: Not Given Senna (Senokot) 2 tab PO HSPRN PRN PRN Reason: Constipation Sodium Chloride (Flush - Normal Saline) 10 ml IVF Q12HR [facility] Last Admin: 02/14/18 09:43 Dose: Not Given Sodium Chloride (Flush - Normal Saline) 10 ml IVF PRN PRN PRN Reason: Saline Flush Temazepam (Restoril) 15 mg PO HS RUBY
[2018-02-14] MEDS: Temazepam 15 MG CAP PO SCH (20:44)
[2018-02-15] MEDS: Sodium Chloride 0.9% 1,000 ML IV SCH (05:16)
[2018-02-15 05:25] LABS: ALT (SGPT) 9 U/L (8-55); AST (SGOT) 7 U/L (5-34); Albumin 3.2 g/dL (3.4-4.8); Alkaline Phosphatase 101 U/L (40-150); Anion Gap 13 mmol/L (10-20); BUN (Urea Nitrogen) 20 mg/dL (9.8-20.1); Bilirubin, Total 0.2 mg/dL (0.2-1.2); Calc. Creatinine Clearance 49 mL/min (70-130); Calcium 8.3 mg/dL (7.8-10.44); Carbon Dioxide 19 mmol/L (23-31); Chloride 112 mmol/L (98-107); Estimated GFR-MDRD 62; Globulin 2.5 g/dL (2.4-3.5); Glucose 207 mg/dL (83-110); Protein, Total 5.7 g/dL (6.0-8.3); Sodium 140 mmol/L (136-145)
[2018-02-15] MEDS: HumaLOG 300 UNITS/3 ML VIAL SC PRN ×2 (05:28→12:30)
[2018-02-15 06:47] LABS: Band 8 % (5-11); Hemoglobin 10.7 g/dL (12.0-16.0); Lymphocytes 18 % (21-51); MDiff Complete? YES; Mean Corpuscular HGB CONC 32.4 g/dL (32.0-36.0); Mean Corpuscular Volume 95.7 fL (78.0-98.0); Mean Platelet Volume 6.9 fL (7.4-10.4); Metamyelocyte 1 % (0-0); Monocytes 3 % (0-10); Myelocyte 1 % (0-0); Neutrophil 69 % (42-75); PLT Morphology Comment Appears Increased; Platelet Count 505 thou/uL (130-400); RBC Distribution Width 12.8 % (11.5-14.5); Red Blood Cell (RBC) Count 3.46 mill/uL (4.20-5.40); White Blood Cell (WBC) Count 18.8 thou/uL (4.8-10.8)
[2018-02-15] MEDS: COMBIVENT RESPIMAT INH SCH (09:11)
[2018-02-15] MEDS: Heparin 5,000 UNITS/ML VIAL SC SCH ×3 (09:14→20:38)
[2018-02-15] MEDS: Mometasone/Formoterol 120 PUFF INHALER INH SCH ×2 (10:38→18:40)
--- NOTE | 2018-02-15 10:38 | PRG ---
DATE OF SERVICE: 02/15/2018 SUBJECTIVE: The patient feels better. PHYSICAL EXAMINATION: VITAL SIGNS: Temperature 97.6, pulse 110, respirations 16, O2 sat 94%, blood pressure 148/71. HEENT: Unremarkable. NECK: No JVD. LUNGS: Fairly clear. CARDIAC: S1 and S2, regular. ABDOMEN: Soft. EXTREMITIES: No edema. LABORATORY DATA: White blood cell count 18.8, hematocrit 33.2, platelet count 505. Sodium 140, pota ssium 4, chloride 112, CO2 of 19, BUN 20, creatinine 0.8, glucose 207. ASSESSMENT: 1. Chronic obstructive pulmonary disease with exacerbation. 2. Pneumonia. PLAN: I think we can go ahead and start to wean her steroids. She will continue nebulization therap y. I will stop her IV fluids. Activity needs to increase as tolerated.
--- NOTE | 2018-02-15 19:48 | PDOC.PN ---
- Subjective Encounter Start Date: 02/15/18 Encounter Start Time: 19:46 Patient seen and examined for COPD flare with Pneumonia. No new complaints. No overnight events - Objective Resuscitation Status: Resuscitation Status FULL:Full Resuscitation MAR Reviewed: Yes Vital Signs & Weight: Vital Signs (12 hours) Temp Pulse Resp BP BP Pulse Ox 02/15/18 19:38 99.0 F 118 H 20 149/80 H 94 L 02/15/18 18:41 94 L 02/15/18 18:40 94 L 02/15/18 18:15 165/85 H 02/15/18 16:24 97.9 F 116 H 16 170/73 H 95 02/15/18 14:19 125 H 20 02/15/18 11:00 98.5 F 122 H 16 148/73 H 98 02/15/18 10:40 96 02/15/18 10:38 120 H 18 96 02/15/18 08:00 97.6 F 125 H 20 94 L Weight Weight 128 lb 7 oz I&O: 02/14/18 02/15/18 02/16/18 06:59 06:59 06:59 Intake Total 2812 Balance 2812 Result Diagrams: 02/15/18 04:28 02/15/18 04:28 Additional Labs: Accuchecks 02/15/18 02/15/18 02/15/18 16:25 11:12 05:26 POC Glucose 125 H 268 H 217 H 02/14/18 20:13 POC Glucose 145 H Phys Exam - Physical Examination Constitutional: NAD Respiratory: no wheezing Bibasilar rales with scat rhonchi Cardiovascular: RRR, no rub tachycardic Gastrointestinal: soft, non-tender, positive bowel sounds Musculoskeletal: no edema Neurological: non-focal, moves all 4 limbs Dx/Plan - Plan continue antibiotics, respiratory therapy, out of bed/ambulate, DVT proph w/ heparin, DVT proph w/SCDs IMPRESSION: 1. COPD Exacerbation with multifocal pneumonia ?Pneumococcal - Patient failed Outpt Atbx/Steroids 2. Chronic resp failure on home O2 3. Tachyarrythmia on Inderal 4. Anxiety PLAN: -Cont Steroids/Doxycycline/Nebs/O2 -Resume home dose of Propranolol, Elavil, Tessalon -Add Stool softener -Cont current meds as below -AM labs -Add Protonix while on steroids Review of Systems - Review of Systems Constitutional: negative: fever, chills, sweats, weakness, malaise, other Respiratory: Cough, SOB with Excertion. negative: Dry, Shortness of Breath, Hemoptysis, Pleuritic Pain, Sputum, Wheezing Cardiovascular: negative: chest pain, palpitations, orthopnea, paroxysmal nocturnal dyspnea, edema, light headedness, other - Medications/Allergies Allergies/Adverse Reactions: Allergies Allergy/AdvReac Type Severity Reaction Status Date / Time iodine Allergy Severe Anaphylaxis Verified 02/14/18 08:20 acetaminophen Allergy Verified 02/14/18 03:56 [From Darvocet-N] cefuroxime Allergy Diarrhea Verified 09/30/17 09:35 Cephalosporins Allergy Verified 09/30/17 09:35 levofloxacin Allergy Diarrhea Verified 09/30/17 09:35 lorazepam Allergy Verified 09/30/17 09:35 Penicillins Allergy Hives Verified 09/30/17 09:35 propoxyphene Allergy Verified 09/30/17 09:35 [From Darvocet-N] Medications: Current Medications Acetaminophen (Tylenol) 650 mg PO Q4H PRN PRN Reason: Headache/Fever or Pain Last Admin: 02/14/18 00:35 Dose: 650 mg Albuterol/Ipratropium (Duoneb) 3 ml NEB [id number] [facility] Last Admin: 02/15/18 18:40 Dose: 3 ml Amitriptyline HCl (Elavil) 50 mg PO HS RUBY Benzonatate (Tessalon) 100 mg PO BID RUBY Bisacodyl (Dulcolax) 10 mg PO DAILYPRN PRN PRN Reason: Constipation Dextrose/Water (Dextrose 50%) 25 gm SLOW IVP PRN PRN PRN Reason: Hypoglycemia Glucagon (Glucagon) 1 mg IM PRN PRN PRN Reason: Hypoglycemia Heparin Sodium (Porcine) (Heparin) 5,000 units SC TID [facility] Last Admin: 02/15/18 17:55 Dose: 5,000 units Doxycycline Hyclate 100 mg/ (Sodium Chloride) 100 mls @ 100 mls/hr IVPB 0100, 1300 [facility] Last Admin: 02/15/18 12:30 Dose: 100 mls Dextrose/Water (D5w) 1,000 mls @ 0 mls/hr IV .Q0M PRN; As Directed PRN Reason: Hypoglycemia Insulin Human Lispro (Humalog) 0 units SC .MILD SLIDING SCALE PRN PRN Reason: Mild Correctional Scale Last Admin: 02/15/18 12:30 Dose: 4 unit Methylprednisolone Sodium Succinate (Solu-Medrol) 20 mg IVP 0600,1800 [facility] Last Admin: 02/15/18 18:01 Dose: 20 mg Mometasone Furoate/Formoterol Fumar (Dulera 100 Mcg/5 Mcg Inhaler) 2 puff INH BID [facility] Last Admin: 02/15/18 18:40 Dose: 2 puff Ondansetron HCl (Zofran) 4 mg IVP Q6H PRN PRN Reason: Nausea/Vomiting Pantoprazole Sodium (Protonix) 40 mg PO DAILY [facility] Combivent Respimat ( Albuterol/Ipratropium) 0 each INH DAILY [facility] Last Admin: 02/15/18 09:11 Dose: Not Given Propranolol HCl (Inderal) 10 mg PO BID [facility] Senna (Senokot) 2 tab PO HSPRN PRN PRN Reason: Constipation Senna/Docusate Sodium (Senokot S) 1 tab PO BID [facility] Sodium Chloride (Flush - Normal Saline) 10 ml IVF Q12HR [facility] Last Admin: 02/15/18 09:14 Dose: Not Given Sodium Chloride (Flush - Normal Saline) 10 ml IVF PRN PRN PRN Reason: Saline Flush Temazepam (Restoril) 15 mg PO HS [facility] Last Admin: 02/14/18 20:44 Dose: 15 mg
[2018-02-15] MEDS: Propranolol 10 MG TAB PO SCH (20:36)
[2018-02-15] MEDS: Amitriptyline HCl 25 MG TAB PO SCH (20:37)
[2018-02-15] MEDS: Senokot S 8.6-50 MG TAB PO SCH (20:37)
[2018-02-15] MEDS: Temazepam 15 MG CAP PO SCH (20:37)
[2018-02-15] MEDS: guaiFENesin ER 600 MG TAB PO SCH (20:37)
[2018-02-15] MEDS: Benzonatate 100 MG CAP PO SCH (20:37)
[2018-02-16 04:58] LABS: Anion Gap 11 mmol/L (10-20); BUN (Urea Nitrogen) 19 mg/dL (9.8-20.1); Calc. Creatinine Clearance 56 mL/min (70-130); Carbon Dioxide 22 mmol/L (23-31); Chloride 111 mmol/L (98-107); Estimated GFR-MDRD 72; Glucose 118 mg/dL (83-110); Magnesium 1.9 mg/dL (1.6-2.6); Phosphorus 2.8 mg/dL (2.3-4.7); Potassium 4.7 mmol/L (3.5-5.1); Sodium 139 mmol/L (136-145)
[2018-02-16 05:33] LABS: Band 1 % (5-11); Hemoglobin 11.3 g/dL (12.0-16.0); Lymphocytes 10 % (21-51); MDiff Complete? YES; Mean Corpuscular HGB CONC 33.9 g/dL (32.0-36.0); Mean Corpuscular Hemoglobin 31.9 pg (27.0-31.0); Mean Platelet Volume 6.6 fL (7.4-10.4); Monocytes 13 % (0-10); Neutrophil 76 % (42-75); PLT Morphology Comment Appears Increased; Platelet Count 532 thou/uL (130-400); RBC Distribution Width 12.9 % (11.5-14.5); Red Blood Cell (RBC) Count 3.54 mill/uL (4.20-5.40); White Blood Cell (WBC) Count 24.5 thou/uL (4.8-10.8)
[2018-02-16] MEDS: Propranolol 10 MG TAB PO SCH ×2 (09:54→20:43)
[2018-02-16] MEDS: Benzonatate 100 MG CAP PO SCH ×2 (09:54→20:43)
[2018-02-16] MEDS: Heparin 5,000 UNITS/ML VIAL SC SCH ×3 (09:55→20:48)
[2018-02-16] MEDS: guaiFENesin ER 600 MG TAB PO SCH ×2 (09:55→20:43)
[2018-02-16] MEDS: Senokot S 8.6-50 MG TAB PO SCH ×2 (09:55→20:43)
[2018-02-16] MEDS: COMBIVENT RESPIMAT INH SCH (09:56)
[2018-02-16] MEDS: Mometasone/Formoterol 120 PUFF INHALER INH SCH ×2 (10:29→18:46)
--- NOTE | 2018-02-16 11:24 | PRG ---
DATE OF SERVICE: 02/16/2018 SUBJECTIVE: Ms. Long is doing better, had no acute complaints today. OBJECTIVE: VITAL SIGNS: Temperature 98.3, pulse 102, respirations 18, O2 saturation 96%, and blood pressure 144 /85. HEENT: Unremarkable. NECK: No JVD. LUNGS: Soft and expiratory wheezing. CARDIOVASCULAR: S1 and S2, regular. ABDOMEN: Soft. EXTREMITIES: No edema. LABORATORY DATA: White blood cell count 24.5, hematocrit 33.3, platelet count 532. Sodium 139, pota ssium 4.7, chloride 111, CO2 of 22, BUN 19, creatinine 0.7, and glucose 118. ASSESSMENT: 1. Chronic obstructive pulmonary disease with exacerbation. 2. Pneumonia. PLAN: I think the white blood cell count is probably elevated secondary to the steroids. I will go ahead and drop the dose of the steroids. Clinically, she appears to be getting better. However, [address] st x-ray repeated tomorrow and hope to have her discharged by tomorrow or Saturday.
--- NOTE | 2018-02-16 13:22 | PDOC.PN ---
- Subjective Encounter Start Date: 02/16/18 Encounter Start Time: 10:30 Patient seen and examined for Pneumonia/COPD Exacerbation. Slightly productive cough +. No overnight events - Objective Resuscitation Status: Resuscitation Status FULL:Full Resuscitation MAR Reviewed: Yes Vital Signs & Weight: Vital Signs (12 hours) Temp Pulse Resp BP Pulse Ox 02/16/18 11:29 98.5 F 104 H 18 139/78 104 H 02/16/18 10:32 96 02/16/18 10:29 102 H 18 96 02/16/18 10:24 95 02/16/18 08:00 98.3 F 102 H 18 02/16/18 07:30 98.3 F 99 20 144/85 H 92 L 02/16/18 07:23 95 02/16/18 04:00 97.9 F 107 H 22 H 177/70 H 95 02/16/18 02:49 95 Weight Weight 128 lb 7 oz I&O: 02/15/18 02/16/18 02/17/18 06:59 06:59 06:59 Intake Total 2812 730 240 Balance 2812 730 240 Result Diagrams: 02/16/18 04:17 02/16/18 04:17 Additional Labs: Accuchecks 02/16/18 02/16/18 02/15/18 11:14 04:40 19:40 POC Glucose 141 H 125 H 101 02/15/18 16:25 POC Glucose 125 H Phys Exam - Physical Examination Constitutional: NAD Respiratory: wheezing present Bibasilar rales/rhonchi Cardiovascular: RRR, no rub Gastrointestinal: soft, non-tender, positive bowel sounds Musculoskeletal: no edema Neurological: moves all 4 limbs Dx/Plan - Plan respiratory therapy, out of bed/ambulate, DVT proph w/heparin, DVT proph w/SCDs IMPRESSION: 1. COPD Exacerbation with multifocal pneumonia ?Pneumococcal - Patient failed Outpt Atbx/Steroids 2. Chronic resp failure on home O2 3. Tachyarrhythmia on Inderal 4. Anxiety 5. Leucocytosis - prob due to Steroids PLAN: Cont current dose of Solumedrol with Doxycycline Cont Nebs/O2 Cont current meds as below Labs reviewed AM labs Ambulate Review of Systems - Review of Systems Constitutional: negative: fever, chills, sweats, weakness, malaise, other Respiratory: Cough, SOB with Excertion, Sputum, Wheezing. negative: Dry, Hemoptysis, Pleuritic Pain Cardiovascular: negative: chest pain, palpitations, orthopnea, paroxysmal nocturnal dyspnea, edema, light headedness, other Gastrointestinal: negative: Nausea, Vomiting, Abdominal Pain, Diarrhea, Constipation, Melena, Hematochezia, Other - Medications/Allergies Allergies/Adverse Reactions: Allergies Allergy/AdvReac Type Severity Reaction Status Date / Time iodine Allergy Severe Anaphylaxis Verified 02/14/18 08:20 acetaminophen Allergy Verified 02/14/18 03:56 [From Darvocet-N] cefuroxime Allergy Diarrhea Verified 09/30/17 09:35 Cephalosporins Allergy Verified 09/30/17 09:35 levofloxacin Allergy Diarrhea Verified 09/30/17 09:35 lorazepam Allergy Verified 09/30/17 09:35 Penicillins Allergy Hives Verified 09/30/17 09:35 propoxyphene Allergy Verified 09/30/17 09:35 [From Darvocet-N] Medications: Current Medications Acetaminophen (Tylenol) 650 mg PO Q4H PRN PRN Reason: Headache/Fever or Pain Last Admin: 02/14/18 00:35 Dose: 650 mg Albuterol/Ipratropium (Duoneb) 3 ml NEB [id number] [facility] Last Admin: 02/16/18 10:32 Dose: 3 ml Amitriptyline HCl (Elavil) 50 mg PO HS [facility] Last Admin: 02/15/18 20:37 Dose: 50 mg Benzonatate (Tessalon) 100 mg PO BID [facility] Last Admin: 02/16/18 09:54 Dose: 100 mg Bisacodyl (Dulcolax) 10 mg PO DAILYPRN PRN PRN Reason: Constipation Dextrose/Water (Dextrose 50%) 25 gm SLOW IVP PRN PRN PRN Reason: Hypoglycemia Glucagon (Glucagon) 1 mg IM PRN PRN PRN Reason: Hypoglycemia Guaifenesin (Mucinex) 600 mg PO Q12HR [facility] Last Admin: 02/16/18 09:55 Dose: 600 mg Heparin Sodium (Porcine) (Heparin) 5,000 units SC TID [facility] Last Admin: 02/16/18 09:55 Dose: 5,000 units Doxycycline Hyclate 100 mg/ (Sodium Chloride) 100 mls @ 100 mls/hr IVPB 0100, 1300 [facility] Last Admin: 02/16/18 12:31 Dose: 100 mls Dextrose/Water (D5w) 1,000 mls @ 0 mls/hr IV .Q0M PRN; As Directed PRN Reason: Hypoglycemia Insulin Human Lispro (Humalog) 0 units SC .MILD SLIDING SCALE PRN PRN Reason: Mild Correctional Scale Last Admin: 02/15/18 12:30 Dose: 4 unit Mometasone Furoate/Formoterol Fumar (Dulera 100 Mcg/5 Mcg Inhaler) 2 puff INH BID [facility] Last Admin: 02/16/18 10:29 Dose: 2 puff Ondansetron HCl (Zofran) 4 mg IVP Q6H PRN PRN Reason: Nausea/Vomiting Pantoprazole Sodium (Protonix) 40 mg PO 2100 [facility] Last Admin: 02/15/18 20:37 Dose: 40 mg Combivent Respimat ( Albuterol/Ipratropium) 0 each INH DAILY [facility] Last Admin: 02/16/18 09:56 Dose: 1 each Prednisone (Prednisone) 20 mg PO BID [facility] Propranolol HCl (Inderal) 10 mg PO BID [facility] Last Admin: 02/16/18 09:54 Dose: 10 mg Senna (Senokot) 2 tab PO HSPRN PRN PRN Reason: Constipation Senna/Docusate Sodium (Senokot S) 1 tab PO BID [facility] Last Admin: 02/16/18 09:55 Dose: 1 tab Sodium Chloride (Flush - Normal Saline) 10 ml IVF Q12HR [facility] Last Admin: 02/16/18 09:56 Dose: 10 ml Sodium Chloride (Flush - Normal Saline) 10 ml IVF PRN PRN PRN Reason: Saline Flush Temazepam (Restoril) 15 mg PO HS [facility] Last Admin: 02/15/18 20:37 Dose: 15 mg
[2018-02-16] MEDS: predniSONE 20 MG TAB PO SCH (20:43)
[2018-02-16] MEDS: Amitriptyline HCl 25 MG TAB PO SCH (20:43)
[2018-02-16] MEDS: Temazepam 15 MG CAP PO SCH (20:43)
[2018-02-17 04:57] LABS: Anion Gap 14 mmol/L (10-20); BUN (Urea Nitrogen) 21 mg/dL (9.8-20.1); Calc. Creatinine Clearance 53 mL/min (70-130); Calcium 8.2 mg/dL (7.8-10.44); Carbon Dioxide 22 mmol/L (23-31); Chloride 106 mmol/L (98-107); Estimated GFR-MDRD 67; Glucose 133 mg/dL (83-110); Potassium 3.7 mmol/L (3.5-5.1); Sodium 138 mmol/L (136-145)
[2018-02-17 05:19] LABS: Band 13 % (5-11); Hemoglobin 12.1 g/dL (12.0-16.0); Lymphocytes 24 % (21-51); MDiff Complete? YES; Mean Corpuscular HGB CONC 33.5 g/dL (32.0-36.0); Mean Corpuscular Hemoglobin 32.5 pg (27.0-31.0); Mean Corpuscular Volume 97.2 fL (78.0-98.0); Mean Platelet Volume 6.6 fL (7.4-10.4); Metamyelocyte 3 % (0-0); Myelocyte 1 % (0-0); Neutrophil 59 % (42-75); Nucleated RBC 1 % (0); PLT Morphology Comment Appears Increased; Platelet Count 526 thou/uL (130-400); RBC Distribution Width 13.2 % (11.5-14.5); Red Blood Cell (RBC) Count 3.72 mill/uL (4.20-5.40); White Blood Cell (WBC) Count 26.3 thou/uL (4.8-10.8)
[2018-02-17] MEDS: Mometasone/Formoterol 120 PUFF INHALER INH SCH (07:06)
[2018-02-17] MEDS: COMBIVENT RESPIMAT INH SCH (08:50)
[2018-02-17] MEDS: guaiFENesin ER 600 MG TAB PO SCH (08:51)
[2018-02-17] MEDS: Propranolol 10 MG TAB PO SCH (08:51)
[2018-02-17] MEDS: Heparin 5,000 UNITS/ML VIAL SC SCH (08:52)
[2018-02-17] MEDS: Senokot S 8.6-50 MG TAB PO SCH (08:52)
[2018-02-17] MEDS: Benzonatate 100 MG CAP PO SCH (08:52)
[2018-02-17] MEDS: predniSONE 20 MG TAB PO SCH (08:52)
--- NOTE | 2018-02-17 08:58 | RAD ---
FRONTAL PORTABLE UPRIGHT CHEST RADIOGRAPH: Date: 02/17/18 COMPARISON: 02/13/18. HISTORY: Ventilated patient. Pneumonia. FINDINGS: There is stable blunting of the costophrenic angle on the left suggesting left pleural thickening. Po stoperative clips are noted in the right and left upper quadrant of the abdomen. The right lung appea rs clear. There is hazy increased density in the inferior aspect of the left upper lobe laterally abutting the pleural surface, similar when compared to prior imaging. There is atherosclerotic calcification of th e aortic arch. IMPRESSION: Stable appearance of the chest as above. POS: [facility]
--- NOTE | 2018-02-17 09:18 | PRG ---
DATE OF SERVICE: 02/17/2018 This morning she is awake, alert, responsive. She has walked the halls without any distress. Her white count is elevated, unfortunately, 26, but she is not coughing any sputum. PHYSICAL EXAMINATION: VITAL SIGNS: Temperature 98, respiration 16, pulse 82, blood pressure 156/85. CHEST: Chest revealed decreased breath sounds, no wheezing. CARDIAC: Normal S1-S2. No gallops. ABDOMEN: No masses. Electrolytes are normal. IMPRESSION: 1. Chronic obstructive pulmonary disease exacerbation. 2. Bronchitis. 3. Leukocytosis. 4. Questionable left upper lung density. She appears to be stable, baseline. PLAN: She can be discharged home on doxycycline and prednisone. She can follow up in the office in 2-3 weeks. She said she wants a Symbicort prescription which you can give her at this time.
[2018-02-17 11:24] VITALS: BP 159/82; TEMP 98
--- NOTE | 2018-02-17 12:59 | DIS ---
DATE OF DISCHARGE: 02/17/2018 DISCHARGE DISPOSITION: Home. FOLLOWUP: Follow up with primary care physician, Dr. Perales, in 1 week. Follow up with Dr. Khan in the next 10 days. The patient was seen on the day of discharge. Denies any new complaints. No chest pain, shortness o f breath, palpitations reported. DISCHARGE MEDICATIONS: Symbicort 160/4.5, doxycycline 100 mg twice a day #14, Mucinex 600 mg twice a day, Protonix 40 mg daily, prednisone taper. All other home medications were resumed. BRIEF HOSPITAL COURSE: The patient is a 77-year-old female with COPD; chronic respiratory failure, o n home oxygen, presented to the hospital with shortness of breath. Her workup was consistent with [place] PD exacerbation with multifocal pneumonia. Please note that patient failed outpatient antibiotics an d steroids. She was placed on IV antibiotics with steroids. She was also seen by Pulmonary, Dr. Karen loomis. VQ scan on admission was negative for pulmonary embolism. Chest CT scan in the emergency room sh owed findings consistent with multifocal infectious pneumonitis. A repeat CT in 4-6 weeks recommende d to document resolution. Primary care physician advised to follow. She underwent a chest x-ray on the day of discharge that appeared stable. The patient has been cleared by Dr. Khan for discharge. FINAL DIAGNOSES: 1. Chronic obstructive pulmonary disease exacerbation with multifocal pneumonia, suspected pneumococ rocio. 2. Chronic respiratory failure, on home oxygen. 3. Chronic tachyarrhythmia, on Inderal, followed by Dr. Garcia. 4. Anxiety. 5. Leukocytosis, probably secondary to steroids. 6. Multiple antibiotic allergies. Plan of care was discussed with the patient in detail. She stated understanding.
--- NOTE | 2018-02-19 09:19 | HP ---
CHIEF COMPLAINT: Fever and left-sided chest pain. HISTORY OF PRESENT ILLNESS: This is a 77-year-old female with a known history of coronary artery dis ease and COPD, who presented with a chief complaint of fever and left-sided chest pain that has been progressive over the last 4 days. The patient has been using oxygen at home and breathing treatments up to four times a day without symptomatic relief. It appears that the patient was previously in [facility] ER approximately 4 days ago. She represents today with similar but worsening complaints. The patient states that she has had similar issues in the past with her COPD and a known history of pneumonia. REVIEW OF SYSTEMS: As per HPI. CONSTITUTIONAL: No significant weight gain or loss. The patient does endorse a known history of fev er subjective at home without chills. HEENT: Denies any headaches, vision changes, lightheadedness or dizziness. Left-sided chest pain pa rticularly when she coughs or tries to take a deep breath. RESPIRATORY: Shortness of breath as above. Cough as above, slightly productive of sputum. GASTROINTESTINAL: Denies any nausea, vomiting, abdominal pain, diarrhea or constipation. Does endor se decreased appetite over the last 4 days with her acute illness. MUSCULOSKELETAL: Denies any myalgias or arthralgias. SKIN: No new rashes or lymphadenopathy. Remainder of review of systems otherwise negative. PAST MEDICAL HISTORY: As per above, 1. Coronary artery disease with a history of PCI. 2. Chronic obstructive pulmonary disease. 3. Status post appendectomy. 4. Status post cholecystectomy. 5. Status post hysterectomy. 6. Status post tonsillectomy 7. Status post orthopedic surgery of her arm. HOME MEDICATIONS: Include, 1. Combivent 1 puff inhalation q.a.m. 2. DuoNeb 3 mL nebs q.i.d. 3. Breo Ellipta 1 puff inhalation q.a.m. 4. Acetaminophen 650 mg p.o. p.r.n. 5. Benzonatate 100 mg p.o. b.i.d. ALLERGIES: Include the following: ACETAMINOPHEN with unknown reaction; CEFUROXIME causes diarrhea; CEPHALOSPORINS also cause diarrhea; LEVOFLOXACIN causes diarrhea; LORAZEPAM with unknown reaction; PE NICILLIN causes hives; PROPOXYPHENE, unlisted reaction. FAMILY HISTORY: The patient denies any known family history of recurrent infection. SOCIAL HISTORY: The patient has a history of former tobacco use, but no active tobacco use in the la st 5 years. Denies any alcohol or illicit drug use. Wishes to be FULL CODE at this point in time. PHYSICAL EXAMINATION: GENERAL: The patient is awake, alert, conversant, in no acute distress. HEENT: Normocephalic, atraumatic. Slightly dry mucous membranes. Extraocular motions are intact. CARDIOVASCULAR: S1, S2. Pulses 2+ bilateral upper extremities. RESPIRATORY: Diminished throughout without wheezes, rales or rhonchi. Some conversational dyspnea. Grossly clear to auscultation bilaterally, but severely diminished as mentioned above. ABDOMEN: Positive bowel sounds, soft, nontender to palpation. MUSCULOSKELETAL: Moving all 4 extremities independently. IMAGING: On 02/13/2018, CT of the chest without contrast findings "the lack of contrast limits asses sment of the imaged viscera, the vascular structures, and for lymphadenopathy". Limited assessment f or lymphadenopathy demonstrates no enlarged lymph nodes within the chest. Image of the abdomen demon strates post-surgical clips in the left upper quadrant and elliot hepatitis. There is an exophytic pr obable cyst emanating from the lateral aspect of the left kidney unchanged, but only partially imaged and thus incompletely evaluated. There is trace pericardial fluid. No significant pleural or media stinal fluid. There were scattered atherosclerotic calcifications of the aortic arch and coronary ar teries. There is no pneumothorax seen on either side. There are increased linear interstitial densi ties noted bilaterally within upper lobe predominance. There is centrilobular emphysematous change w ithin both upper lobes. No acute findings are noted within the right lung. There is increased linea r density in the inferior and medial right middle lobe with evidence of scar and/or volume loss. The re is a new peripheral reticular nodular density within the posterior lateral aspect of the left uppe r lobe with lateral pleural thickening is noted in the interlobar fissure, not present on prior exam. There is also a new nodular pleural density with adjacent pulmonary parenchymal opacities in the in ferior lateral aspect of the left lower lobe abutting the pleural surface on image 40. LABORATORY DATA: WBC 17.9, hemoglobin 10.4, hematocrit 31.6, platelets 464. Sodium 136, potassium 4 .3, chloride 109, bicarbonate 12, BUN 30, creatinine 0.92. Lactic acid initial 3.1 subsequent 2.8, c alcium 8.3, total bilirubin 0.2, AST 8, ALT 11, alkaline phosphatase 137. Troponin initial 0.023, dykes bsequent 0.010, subsequent 0.010; total protein 5.9; albumin 3.2. ASSESSMENT AND PLAN: 1. A 77-year-old female presenting with fever, leukocytosis, and left-sided pleuritic chest pain. C T of the chest is suggestive of left lower lobe pneumonia, on empiric antibiotics. The patient has a history of diarrhea but has tolerated this before without diarrhea. I appreciate pulmonary co nsultation. 2. History of chronic obstructive pulmonary disease concerning for chronic obstructive pulmonary dis ease exacerbation with underlying pneumonia. The patient was placed on , nebulizer treatment, p rednisone, empiric antibiotics. The patient sees Dr. Khan on outpatient basis. We will also check a ventilation perfusion scan as possible. 3. History of coronary artery disease with negative troponins and hemodynamic stability. Continue t o monitor. 4. Sepsis secondary to left lower lobe pneumonia as noted above. We will need continued close follo wup. 5. Diet: Cardiac. 6. Activity as tolerated. 7. Deep venous thrombosis prophylaxis. Thank you for asking me to care for the patient. Questions or concerns, please contact me at [facility].
--- NOTE | 2018-03-11 12:46 | PQF ---
[facility] Physician Query Form CLEMENTINEMARY COLON ORTIZ RODRIGUES [id number] [facility] [id number] CLINICAL DOCUMENTATION CLARIFICATION FORM: POST DISCHARGE Addendum to original discharge summary date: ____ Late entry note date: __ DATE: 03/11/18 ATTN: Dr. Gertrudis Rodrigues Please exercise your independent, professional judgment in responding to the clarification form. Clinical indicators are provided on the bottom of this form for your review Please check appropriate box(s) to clarify if the following diagnosis has been ruled in or ruled out: METABOLIC ENCEPHALOPAHTY [ ] Ruled in diagnosis [ ] Continue to treat [ ] Resolved [ ] Ruled out diagnosis [ x ] Cannot rule out diagnosis [ ] Other diagnosis [ ] Unable to determine In addition, please specify: Present on Admission (POA): [ x ] Yes [ ] No [ ] Unable to determine For continuity of documentation, please document condition throughout progress notes and discharge summary. Thank You. CLINICAL INDICATORS - SIGNS / SYMPTOMS / LABS question of metabolic encephalopathy [employer] difficulty with recalling the correct word TREATMENTS closely monitor patient's neurological status (This form is maintained as a part of the permanent medical record) 2014 [employer]. All Rights Reserved Misael [email or web address] [phone] Page 1 of 2 Note to Provider: In responding to this query, you must exercise independent clinical judgment. The fact that a query is placed does not imply that any particular answer is desired or expected. Please document your response/ clarification to this query in the patients medical record. Your response should clarify and resolve conflicting, ambiguous, or incomplete information in the health record regarding any significant reportable condition or procedure. ( 2008 [facility] Practice Brief, pg. 5) [employer] does not endorse or approve queries developed by the hospital or its agents and issued through the [employer] software that are not in accordance with the rules or regulations promulgated by the Centers for Medicare and Medicaid (CMS), Office of Content Development Manager (OIG), or US Department of Health and Human Services and [facility] 2008 Practice Brief Managing an Effective Query Process or its updates (Practice Brief). [employer]
== END 2018-02-17 11:51 | disposition home or self-care (01) | DRG 193 ==
LOC: ERS 16:05 → 2SE 18:31 → T4-B 02-14 16:18
PROVIDERS: ADMIT Internal Medicine; ATTEND Internal Medicine
DX: J13 Pneumonia due to Streptococcus pneumoniae (principal); G93.41 Metabolic encephalopathy; J96.10 Chronic respiratory failure, unspecified whether with hypoxia or hypercapnia; J44.1 Chronic obstructive pulmonary disease with (acute) exacerbation; J44.0 Chronic obstructive pulmonary disease with (acute) lower respiratory infection; Z99.81 Dependence on supplemental oxygen; F41.9 Anxiety disorder, unspecified; D72.829 Elevated white blood cell count, unspecified; T38.0X5A Adverse effect of glucocorticoids and synthetic analogues, initial encounter; Y92.9 Unspecified place or not applicable; I25.10 Atherosclerotic heart disease of native coronary artery without angina pectoris; Z95.5 Presence of coronary angioplasty implant and graft
CPT/HCPCS: 36415; 36416; 71045; 71250; 78582; 80048; 80053; 83605; 83735; 84100; 84484; 85025; 87070; 87205; 94640; 96360; A4216; A9540; A9558; J1644; J1956; J2920; J7050; J7506; J7620

== ENCOUNTER 2018-06-03 13:08 | Outpatient (CLI) | payer MEDICARE, OTHER ==
--- NOTE | 2018-06-03 14:13 | RAD ---
CHEST PA AND LATERAL: HISTORY: A 77-year-old female with a history of dyspnea. COMPARISON: 02/17/2018. FINDINGS: There is stable blunting in the left costophrenic angle. Minimal rotation to the left. Minimal line ar parenchymal change in the left upper lateral lung zone which has improved from the prior study. IMPRESSION: Minimal primarily left-sided chronic changes, stable to slightly improved from the prior exam. No si gnificant new process. Atherosclerosis of the aorta with ectasia. POS: [facility]
== END 2018-06-03 13:09 | disposition home or self-care (01) ==
LOC: RAD 13:08
PROVIDERS: ATTEND Internal Medicine Pulmonary Disease
DX: R06.00 Dyspnea, unspecified (principal); I70.0 Atherosclerosis of aorta; I77.811 Abdominal aortic ectasia
CPT/HCPCS: 71046

== ENCOUNTER 2018-10-29 20:41 | Emergency (ER) | payer MEDICARE, OTHER ==
[2018-10-29] MEDS ORDERED: diphenhydrAMINE 50 MG/ML VIAL ONE (21:20)
[2018-10-29] MEDS ORDERED: Famotidine/PF 20 mg/2ml Vial ONE (21:20)
[2018-10-29] MEDS ORDERED: methylPREDNISolone Sod Succ/PF 125 MG/2 ML VIAL ONE (21:20)
--- NOTE | 2018-10-29 22:22 | CT ---
CT ARTERIOGRAM CHEST WITH IV CONTRAST AND 3D MIP IMAGIN10/29/18 HISTORY: Dyspnea. Chest pain. FINDINGS: There is good contrast opacification of the pulmonary arteries and thoracic aorta with normal branchi ng of the great vessels. Calcification in the arterial structures . Small amount of pericardial fluid . Lungs remain hyperinflated with scattered calcified granulomata. No lobar consolidation or pneumoth orax. IMPRESSION: No CT evidence for pulmonary embolus. Small pericardial effusion. Atherosclerosis. POS: [facility]
== END 2018-10-29 22:42 | disposition home or self-care (01) ==
LOC: ERS 20:41
DX: R07.9 Chest pain, unspecified (principal); I25.2 Old myocardial infarction; J44.9 Chronic obstructive pulmonary disease, unspecified; F41.9 Anxiety disorder, unspecified; Z79.899 Other long term (current) drug therapy; Z79.51 Long term (current) use of inhaled steroids
CPT/HCPCS: 71275; 93005; 96374; 96375; J1200; J2930; S0028

== ENCOUNTER 2020-08-22 11:25 | Outpatient (CLI) | payer MEDICARE, OTHER ==
--- NOTE | 2020-08-22 11:45 | RAD ---
Frontal and lateral imaging of the chest: 08/22/2020 COMPARISON: 06/19/2019 HISTORY: Shortness of breath FINDINGS: Postoperative clips are noted in the right upper quadrant and left upper quadrant of the ab domen. There is a dual lead left-sided transvenous pacing device with leads overlying the region of the right atrium and the right ventricle. There is increased linear interstitial density noted bilaterally with pulmonary hyperinflation sugges ting air trapping noted on the lateral examination. Findings are suspicious for COPD in the proper clinical setting. No pneumothorax or pleural fluid is seen. There is no focal consolidation or alveol ar edema. Is atherosclerotic calcification of the aortic arch. IMPRESSION: Chronic appearing findings as detailed above. No focal consolidation or alveolar edema.
== END 2020-08-22 11:26 | disposition home or self-care (01) ==
LOC: BICRAD 11:25
PROVIDERS: ATTEND Internal Medicine Pulmonary Disease
DX: R06.00 Dyspnea, unspecified (principal); I70.0 Atherosclerosis of aorta; J98.4 Other disorders of lung; Z95.0 Presence of cardiac pacemaker; Z98.890 Other specified postprocedural states
CPT/HCPCS: 71046

== ENCOUNTER 2022-11-02 14:55 | Emergency (ER) | payer MEDICARE, OTHER ==
[2022-11-02 16:10] LABS: #Monocytes 1.4 thou/uL (0.11-0.59); #Neutrophils 11.4 thou/uL (1.40-6.50); %Basophils 0.3 % (0.0-1.0); %Eosinophils 0.2 % (0.0-10.0); %Lymphocytes 13.5 % (21.0-51.0); %Monocytes 9.2 % (0.0-10.0); %Neutrophils 76.8 % (42.0-75.0); Hemoglobin 13.9 g/dL (12.0-16.0); Mean Corpuscular HGB CONC 32.8 g/dL (32.0-36.0); Mean Corpuscular Hemoglobin 32.5 pg (27.0-31.0); Mean Corpuscular Volume 99.3 fl (78.0-98.0); Platelet Count 261 10x3/uL (130-400); RBC Distribution Width 12.8 % (11.5-14.5); Red Blood Cell (RBC) Count 4.27 mill/uL (4.20-5.40); White Blood Cell (WBC) Count 14.9 10x3/uL (4.8-10.8)
[2022-11-02 16:21] LABS: Bacteria/HPF None Seen HPF (None Seen); Bilirubin Negative (Negative); Blood, Urine 1+ (Negative); Clarity Clear (Clear); Glucose, Urine (Dipstick) Normal (Negative); Ketone, Urine Trace mg/dL (Negative); Leukocyte Negative Leu/uL (Negative); Nitrite Negative (Negative); Protein, Urine (Dipstick) Negative (Neg-Trace); Specific Gravity, Urine 1.022 (1.002-1.036); Squamous Epithelial None Seen HPF (0-3); Urobilinogen Normal mg/dL (Less than 2); WBC/HPF 0-3 HPF (0-3)
[2022-11-02 16:34] LABS: ALT (SGPT) 13 U/L (8-55); AST (SGOT) 30 U/L (5-34); Albumin 3.3 g/dL (3.4-4.8); Alkaline Phosphatase 69 U/L (40-110); Anion Gap 15 mmol/L (10-20); BUN (Urea Nitrogen) 19 mg/dL (9.8-20.1); Bilirubin, Total 0.6 mg/dL (0.2-1.2); CK (CPK) 481 U/L (29-168); Calc. Creatinine Clearance 0 mL/min (70-130); Carbon Dioxide 22 mmol/L (23-31); Chloride 102 mmol/L (98-107); Estimated GFR 84; Globulin 3.8 g/dL (2.4-3.5); Glucose 91 mg/dL (83-110); Potassium 4.6 mmol/L (3.5-5.1); Protein, Total 7.1 g/dL (5.8-8.1); Sodium 134 mmol/L (136-145)
[2022-11-02 17:04] LABS: SARS-CoV-2 NAA Rapid Test Not Detected (NotDetected)
[2022-11-02] MEDS ORDERED: Azithromycin 500 MG VIAL ONE (19:59)
[2022-11-02] MEDS ORDERED: Aztreonam 2 GM in Sodium Chloride 0.9% 100 ML IVPB SCH (20:00)
[2022-11-03 02:18] LABS: Troponin I Less than 0.010 ng/mL (< 0.028)
== END 2022-11-03 03:39 | disposition short-term general hospital (02) ==
LOC: ERS 14:55
DX: R41.82 Altered mental status, unspecified (principal); R55 Syncope and collapse; J18.9 Pneumonia, unspecified organism; J44.9 Chronic obstructive pulmonary disease, unspecified; Z20.822 Contact with and (suspected) exposure to COVID-19; Z87.891 Personal history of nicotine dependence
CPT/HCPCS: 0240U; 70450; 71045; 71250; 72170; 73030; 73502; 74177; 80053; 82550; 83605; 84484; 85025; 87040; 87086; 93005; 96365; 96367; 99285; J0456; 36415; 81003; 81015; J3490